=== PATIENT | male | born 1980 | race Caucasian/White ===

== ENCOUNTER 2020-09-12 11:39 | Outpatient (CLI) | payer OTHER, MEDICAID, SELFPAY ==
--- NOTE | 2020-09-12 11:48 | XR_ITS ---
WS: [id number] Exam: XR cervical spine 4-5V [id number] Date/Time of Exam: 09/12/2020 11:48 AM Reason For Exam: M54.2 - Cervicalgia There is an osseous density noted in the posterior soft tissues along the spinous process of C7 that may represent an avulsion fracture of the posterior tip of the C7 spinous process. Fracture age is in determinate. No other sign of fracture. Disc spaces are preserved. The odontoid is intact. The bony n euroforamina are patent bilaterally. Normal paraspinal soft tissues. XR/XR cervical spine 4-5V 42162 IMPRESSION: 1. Osseous density noted posterior to the C7 spinous process that may represent an ununited avulsion fracture. Fracture age is indeterminate. 2. The cervical spine is otherwise normal.
--- NOTE | 2020-09-12 11:48 | XR_ITS ---
WS: [id number] Exam: XR thoracic spine 3V* [id number] Date/Time of Exam: 09/12/2020 11:48 AM Reason For Exam: M54.9 - Dorsalgia, unspecified No fracture or dislocation. Mild dextroscoliosis of the upper T-spine. Normal paraspinal soft tissues . XR/XR thoracic spine 3V* [id number] IMPRESSION: 1. No fracture or malalignment. 2. Slight dextroscoliosis of the upper T-spine.
== END 2020-09-12 11:40 | disposition home or self-care (01) ==
LOC: RAD 11:45
PROVIDERS: Visit Provider Nurse Practitioner Family
DX: M54.2 Cervicalgia (principal); M54.6 Pain in thoracic spine; M41.84 Other forms of scoliosis, thoracic region
CPT/HCPCS: 72050; 72072

== ENCOUNTER 2020-09-18 11:25 | Outpatient (CLI) | payer OTHER, SELFPAY ==
--- NOTE | 2020-09-18 11:27 | CT_ITS ---
WS: [id number] CT CERVICAL SPINE HISTORY: S19.9XXA - Unspecified injury of neck, initial encounter TECHNIQUE: Contiguous 2.5 mm axial imaging performed through the entire cervical spine. Sagittal and coronal reformats also performed. All CT scans at [facility] use at least one of these do se optimization techniques: automated exposure control; mA and/or kV adjustment per patient size (inc ludes targeted exams where dose is matched to clinical indication); or iterative reconstruction. DLP: 789.59 mGy.cm COMPARISON: None available. Normal cervical alignment. Craniocervical junction, atlantodental interval and C1-C2 alignment is nor mal. C2-C3: Normal. C3-C4: Normal. C4-C5: Normal. C5-C6: Normal. C6-C7: Normal. C7-T1: Normal. Soft tissues are normal. Lung apices are clear. CT/CT cervical spin wo con* [id number] IMPRESSION: Normal cervical spine.
== END 2020-09-18 11:26 | disposition home or self-care (01) ==
LOC: RAD 11:26
PROVIDERS: PCP Family Medicine; Visit Provider Family Medicine
DX: S19.9XXA Unspecified injury of neck, initial encounter (principal); X58.XXXA Exposure to other specified factors, initial encounter
CPT/HCPCS: 72125

== ENCOUNTER → 2023-04-05 10:22 | Outpatient (BNVA) | payer BC, SELFPAY | PROVIDERS: PCP Nurse Practitioner Family; Visit Provider Nurse Practitioner Family | DX: R10.9 Unspecified abdominal pain (principal); R81 Glycosuria; R80.9 Proteinuria, unspecified; A08.4 Viral intestinal infection, unspecified; R73.9 Hyperglycemia, unspecified; I10 Essential (primary) hypertension; E11.9 Type 2 diabetes mellitus without complications | CPT/HCPCS: 80069; 81000; 82962; 85025 ==

== ENCOUNTER 2025-02-21 14:20 | Emergency (ER) | payer OTHER, SELFPAY ==
[2025-02-21 14:30] VITALS: BP 143/88; PULSE 110; RESP 17; TEMP 36.6; O2SAT 93; BMI 37.2
--- NOTE | 2025-02-21 14:41 | ED_ITS ---
HPI - Recheck/Abnormal Lab/Rx 2 General: Chief Complaint: Recheck/Abnormal Lab/Rx Stated Complaint: dr godoy, abnormal labs, abd pain Time Seen by Provider: 02/21/25 14:40 History of Present Illness: 44-year-old male presents to the emergen cy room was directed here by primary care after finding of elevated liver enzymes. Patient was seen by his primary care doctor and had blood work done. Liver enzymes markedly elevated patient is a heavy drinker drinks over a pint of hard liquor per day. Related Data Home Medications ?Medication ?Instructions ?Recorded ?Confirmed losartan 50 mg tablet 50 mg PO DAILY 08/17/2201/12 metformin 1,000 mg tablet 1,000 mg PO BID 08/17/2207/08 metoprolol tartrate 25 mg tablet 25 mg PO BID 08/17/22 01/21/25 omeprazole 20 mg capsule,delayed 20 mg PO DAILY 01/21/25 release atorvastatin 10 mg tablet 10 mg PO DAILY 04/05/2301/12 glipizide 10 mg tablet 10 mg PO BID 04/05/23 cetirizine 10 mg tablet (Zyrtec) 10 mg PO DAILY PRN 01/21/25 Previous Rx's ?Medication ?Instructions ?Recorded albuterol sulfate 90 mcg/actuation 2 puff inhalation Q 6H PRN 08/17/22 aerosol inhaler shortness of breath or wheez ing #8.5 grams amoxicillin 500 mg tablet 500 mg PO TID #15 tabs 01/21 fluticasone propionate 50 2 spray intranasal DAILY #16 grams 01/21/25 mcg/actuation nasal spray,suspension (Flonase Allergy Relief) prednisone 20 mg tablet 40 mg (2 x 20 mg) PO DAILY 5 days 01/21/25 #10 tabs amoxicillin 875 mg-potassium 1 tab PO BID #14 tabs 07/08 clavulanate 125 mg tablet Allergies Allergy/AdvReac Type Severity Reaction Status Date / Time hydrocodone Allergy hives Verified 01/21/25 10:21 Review of Systems 2 Const: Denies: fever(s) or chills Card: Denies: chest pain Resp: Denies: dyspnea GI: Denies: abdominal pain : Denies: dysuria, urinary frequency or urinary urgency Musc: Denies: neck pain or back pain Skin/Breast: Denies: rash PFSH ED 2 PFSH: Medical History Diabetes mellitus Social History Smoking and tobacco/nicotine status: current every day tobacco/nicotine user Physical Exam 2 Const: GENERAL APPEARANCE: cooperative ORIENTATION/CONSCIOUSNESS: Yes awake, Yes oriented to person, Yes oriented to place and Yes oriented to time HENMT: COMMON NORMALS: normocephalic, atraumatic and hearing grossly normal bilaterally HEAD & SCALP: normocephalic and atraumatic Resp: COMMON NORMALS: normal respiratory effort, No retractions, No use of accessory muscles and clear to auscultation bilaterally AUSCULTATION: clear to auscultation bilaterally Cardio: COMMON NORMALS: regular rate, regular rhythm and No murmurs present (Cardio) RATE: regular rate RHYTHM: regular rhythm GI: COMMON NORMALS: Soft to palpation and No hepatosplenomegaly present I NSPECTION: Yes abdominal distension AUSCULTATION: Yes normoactive bowel sounds PALPATION: Yes Soft to palpation, No Tenderness to palpation present (GI), No Guarding due to palpation present (GI) and Yes No hepatosplenomegaly present Extremity: COMMON NORMALS: normal to inspection, capillary refill normal, no clubbing, cyanosis or edema, no calf tenderness and no pedal edema Neuro: SENSORIUM/ORIENTATION: Yes oriented to person, Yes oriented to place and Yes oriented to time Skin: COMMON NORMALS: no rashes or lesions noted GENERAL SKIN EXAM: no rashes or lesions noted Course 2 Vital Signs: Vital signs: Vital Signs Temperature 97.8 F 02/21/25 14:30 Pulse Rate 100 02/21/25 16:02 Respiratory Rate 16 02/21/25 16:02 Blood Pressure 104/64 02/21/25 16:02 Pulse Oximetry 93 02/21/25 16:02 Oxygen Delivery Me thod Room Air 02/21/25 14:30 MDM - Recheck/Abnormal Lab/Rx Medical Decision Making Patient is beginning developed cirrhosis his liver enzymes are elevated but his T. bili is normal. He does have a colitis on the CT there is some question whether or not this may be related to his liver disease from portal hypertension his INR is prolonged already. Discussed with him the importance of backing off of his drinking changes its already caused in some of his lab work. Will discharge the patient home encouraged him to abstain from drinking. His lipase is normal and ammonia is normal. Did start him on Augmentin for his colitis having follow-up with his primary care doctor Medical Records I reviewed the patient's medical records. Lab Data I reviewed the patient's lab results. 02/21/25 14:56 02/21/25 14:56 Radiology Impressions Abdomen/Pelvis CT 02/21/25 14:56 IMPRESSION: 1. Severe hepatomegaly and hepatic steatosis. 2. Mild submucosal edema and pericolonic minimal stranding involving long segments of the colon. This can be noted with a portal hypertension or infectious colitis. 3. No adenopathy or free fluid. No ascites. 4. No renal obstruction. 5. There are a few sigmoid diverticula but no evidence for acute diverticulitis. Laboratory Results WBC 8.35 10^3/uL (3.29-11.43) 02/21/25 14:56 RBC 5.10 10^6/uL (3.85-5.65) 02/21/25 14:56 Hgb 16.90 g/dL (11.27-16.99) 02/21/25 14:56 Hct 51.4 % (37-53) 02/21/25 14:56 MCV 100.8 fl (82-101) 02/21/25 14:56 MCH 33.1 pg (27-33) H 02/21/25 14:56 MCHC 32.9 g/dL (30-55) 02/21/25 14:56 RDW 11.9 % (12.1-15.1) L 02/21/25 14:56 Plt Count 239 10^3/cmm (157-399) 02/21/25 14:56 MPV 9.8 fL (7.4-10.4) 02/21/25 14:56 Neut % (Auto) 64.1 % 02/21/25 14:56 Lymph % (Auto) 17.6 % 02/21/25 14:56 Granite % (Auto) 15.2 % 02/21/25 14:56 Eos % (Auto) 2.0 % 02/21/25 14:56 Baso % (Auto) 0.7 % 02/21/25 14:56 Neut # (Auto) 5.35 10^3/uL (1.8-7.7) 02/21/25 14:56 Lymph # (Auto) 1.5 10^3/uL (0.8-4.8) 02/21/25 14:56 Granite # (Auto) 1.3 10^3/uL (0.2-0.9) H 02/21/25 14:56 Eos # (Auto) 0.2 10^3/uL (0.0-0.8) 02/21/25 14:56 Baso # (Auto) 0.1 10^3/uL (0.0-0.1) 02/21/25 14:56 Nucleated RBC % (auto) 0 % 02/21/25 14:56 Nucleated RBCs # 0.0 /100WBC 02/21/25 14:56 PT 22.80 SECONDS (12.1-14.9) H 02/21/25 14:56 INR 1.89 (0.8-1.2) H 02/21/25 14:56 APTT 31.8 SECONDS (23.9-36.7) 02/21/25 14:56 Sodium 140 mmol/L (136-145) 02/21/25 14:56 Potassium 3.2 mmol/L (3.5-5.1) L 02/21/25 14:56 Chloride 95 mmol/L (98-107) L 02/21/25 14:56 Carbon Dioxide 29 mmol/L (22-29) 02/21/25 14:56 Anion Gap 19.2 (5-19) H 02/21/25 14:56 BUN 5 mg/dL (6-20) L 02/21/25 14:56 Creatinine 0.6 mg/dL (0.7-1.2) L 02/21/25 14:56 GFR Calculation 147.0 mL/min (90-130) H 02/21/25 14:56 Glucose 224 mg/dL (65-115) H 02/21/25 14:56 Calculated Osmolality 294 mOsm/kg (285-295) 02/21/25 14:56 Lactic Acid 1.7 mmol/L (0.5-2.2) 02/21/25 14:56 Calcium 9.3 mg/dL (8.5-10.5) 02/21/25 14:56 Total Bilirubin 0.5 mg/dL (0.15-1.2) 02/21/25 14:56 AST 77 U/L (0-40) H 02/21/25 14:56 ALT 90 U/L (0-41) H 02/21/25 14:56 Alkaline Phosphatase 198 U/L (40-130) H 02/21/25 14:56 Ammonia 29 umol/L (16-60) 02/21/25 14:56 Total Protein 7.3 g/dL (6.6-8.7) 02/21/25 14:56 Albumin 3.7 g/dL (3.5-5.2) 02/21/25 14:56 Globulin 3.6 g/dL (1.3-4.6) 02/21/25 14:56 Lipase 21 U/L (13-60) 02/21/25 14:56 All radiology interpretation(s) finalized by discharge Discharge Plan Discharge Patient Disposition: Home Clinical Impression: Colitis, Elevated liver transaminase level, Alcohol abuse Condition: Stable Prescriptions: New amoxicillin-pot clavulanate 875-125 mg tablet 1 tab PO BID Qty: 14 0RF No Action metoprolol tartrate 25 mg tablet 25 mg PO BID losartan 50 mg tablet 50 mg PO DAILY metformin 1,000 mg tablet 1,000 mg PO BID omeprazole 20 mg capsule,delayed release(DR/EC) 20 mg PO DAILY albuterol sulfate 90 mcg/actuation HFA aerosol inhaler 2 puff inhalation Q6H PRN (Reason: shortness of breath or wheezing) Qty: 8.5 0RF glipizide 10 mg tablet 10 mg PO BID atorvastatin 10 mg tablet 10 mg PO DAILY cetirizine [Zyrtec] 10 mg tablet 10 mg PO DAILY PRN prednisone 20 mg tablet 40 mg PO DAILY 5 Days Qty: 10 0RF amoxicillin 500 mg tablet 500 mg PO TID Qty: 15 0RF fluticasone propionate [Flonase Allergy Relief] 50 mcg/actuation spray,suspension 2 spray intranasal DAILY Qty: 16 0RF Rx Instructions: administer into each nostril Discharge Orders: Discharge ED (Routine); Ordered 02/21/25 Ordered By: Nathan Howe Referrals: Maria Elena Cortez [Primary Care Provider, Family Practice] Discharge Diet: Clear Liquid Discharge Activity: Increase activity as tolerated Patient Instructions: Abuse of Alcohol (ED), Opioid Safety, Pain Management Activity Restrictions/Additional Instructions: [facility]. It is very important that you follow up as instructed or that you return to the Emergency Department should you have concerns or if your condition changes or worsens in any way. You are seen emergency room with a complaint of diarrhea and elevated liver enzymes. CT does show signs that you may have some colitis recommend he start on Augmentin 875 twice daily for 7 days. Clear liquid diet for 24 to 48 hours and advance as tolerated. Recommend abstaining from alcohol. You have significant elevation in your liver enzymes along with your prothrombin time (bleeding time). Follow-up with your doctor regarding this. Stand Alone Forms: Work/School Release Print Language: Japanese Coding Level of Care Code ED Baker Operator Automatic for Tremayne Howard
--- NOTE | 2025-02-21 14:44 | ECG_ITS ---
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 Measurements Intervals [place] Rate: 102 P: 38 WV: 153 QRS: -26 QRSD: 101 T: 74 QT: 360 QTc: 471 Interpretive Statements SINUS TACHYCARDIA BORDERLINE LEFT AXIS DEVIATION [QRS AXIS < -20] NONSPECIFIC ST & T-WAVE ABNORMALITY ABNORMAL RHYTHM ECG No previous ECG available for comparison Electronically Signed On 02-22-2025 22:04:02 CDT by Kelley Ferrer M.D. [email or web address]
--- NOTE | 2025-02-21 14:56 | CT_ITS ---
WS: [id number] CT ABDOMEN AND PELVIS WITH CONTRAST HISTORY: LEFT lower quadrant pain with diarrhea. TECHNIQUE: Imaging performed of the abdomen and pelvis with IV contrast. Single phase imaging of the abdomen. Coronal and sagittal reformats are submitted. All CT scans at [facility] use at least one of these dose optimization techniques: automated exposure control; mA and/or kV adjustment per patient size (includes targeted exams where dose is matched to clinical indication); or iterative reconstruction. IV CONTRAST: Omnipaque 350; 100 mL IV. Oral contrast: No DLP: 1060.03 mGy.cm COMPARISON: None available. Lower thorax: Lung bases are clear. Heart is normal size. No hiatal hernia. Liver/biliary system: Marked hepatomegaly. Diffuse severe hepatic steatosis and low-attenuation. Gallbladder: Normal. No gallstones or wall thickening. No pericholecystic fluid. Pancreas: Normal size pancreas and pancreatic duct. No adjacent inflammation. Spleen: Normal size spleen. No mass or infarct. Adrenal glands: Normal. Right kidney: Tiny cortical hypodensity in the lower pole. No obstruction. Left kidney: Normal. Aorta: Mild atherosclerosis with no aneurysm. Lymphadenopathy: None. Free fluid: None. GI tract: Normal stomach. No small bowel obstruction. Mild long segment area of submucosal edema and mild pericolonic stranding beginning in the ascending colon. There are few scattered diverticula in the descending and sigmoid colon. Mild submucosal edema reidentified in the distal colon extending to the rectum. Abdominal wall: Unremarkable abdominal wall. No hernia. Pelvis: No free fluid or adenopathy within the pelvis. Bones: Unremarkable. CT/CT abdomen pelvis w con* [id number] IMPRESSION: 1. Severe hepatomegaly and hepatic steatosis. 2. Mild submucosal edema and pericolonic minimal stranding involving long segm ents of the colon. This can be noted with a portal hypertension or infectious c olitis. 3. No adenopathy or free fluid. No ascites. 4. No renal obstruction. 5. There are a few sigmoid diverticula but no evidence for acute diverticuliti s.
[2025-02-21 15:12] VITALS: BP 136/92; PULSE 104; RESP 16; O2SAT 91
[2025-02-21 15:13] LABS: Basophils # 0.1 10^3/uL (0.0-0.1); Basophils % 0.7 %; Eosinophils # 0.2 10^3/uL (0.0-0.8); Hematocrit 51.4 % (37-53); Lymphocytes # 1.5 10^3/uL (0.8-4.8); Lymphocytes % 17.6 %; Mean Corpuscular HGB Conc 32.9 g/dL (30-55); Mean Corpuscular Hemoglobin 33.1 pg (27-33); Mean Corpuscular Volume 100.8 fl (82-101); Mean Platelet Volume 9.8 fL (7.4-10.4); Monocytes # 1.3 10^3/uL (0.2-0.9); Monocytes % 15.2 %; Neutrophils # 5.35 10^3/uL (1.8-7.7); Neutrophils % 64.1 %; Nucleated Red Blood Cells % 0 %; Platelet Count 239 10^3/cmm (157-399); Red Cell Distribution Width 11.9 % (12.1-15.1); White Blood Count 8.35 10^3/uL (3.29-11.43)
[2025-02-21] MEDS: iohexol 350 mg/mL 500 mL Btl (per mL) IV (15:23)
[2025-02-21 15:31] LABS: INR 1.89 (0.8-1.2); Partial Thromboplastin Time 31.8 SECONDS (23.9-36.7)
[2025-02-21 15:34] LABS: Alanine Aminotransferase 90 U/L (0-41); Albumin Level 3.7 g/dL (3.5-5.2); Alkaline Phosphatase 198 U/L (40-130); Ammonia 29 umol/L (16-60); Anion Gap 19.2 (5-19); Aspartate Amino Transferase 77 U/L (0-40); Blood Urea Nitrogen 5 mg/dL (6-20); Calcium 9.3 mg/dL (8.5-10.5); Carbon Dioxide 29 mmol/L (22-29); Chloride 95 mmol/L (98-107); Creatinine Clr Calc Pharmacy 197.9114; Globulin 3.6 g/dL (1.3-4.6); Glucose 224 mg/dL (65-115); Lipase 21 U/L (13-60); Osmolality Calculated 294 mOsm/kg (285-295); Potassium 3.2 mmol/L (3.5-5.1); Sodium 140 mmol/L (136-145); Total Bilirubin 0.5 mg/dL (0.15-1.2); Total Protein 7.3 g/dL (6.6-8.7)
[2025-02-21 15:36] LABS: Lactic Sepsis W/Reflex 1.7 mmol/L (0.5-2.2)
[2025-02-21 15:43] VITALS: BP 159/103; PULSE 97; RESP 16; O2SAT 92
[2025-02-21 16:02] VITALS: BP 104/64; PULSE 100; RESP 16; O2SAT 93
== END 2025-02-21 16:08 | disposition home or self-care (01) ==
PROVIDERS: Emergency Provider Family Medicine; PCP Nurse Practitioner Family
DX: K52.9 Noninfective gastroenteritis and colitis, unspecified (principal); R74.01 Elevation of levels of liver transaminase levels; F10.10 Alcohol abuse, uncomplicated; Z79.84 Long term (current) use of oral hypoglycemic drugs; Z72.0 Tobacco use
CPT/HCPCS: 36415; 74177; 80053; 82140; 83605; 83690; 85025; 85610; 85730; 87040; 93005; 99285